=== PATIENT | female | born 1970 | race Caucasian/White ===

== ENCOUNTER 2023-03-24 08:00 | Day surgery (SDC) | payer OTHER ==
[~2023-03-24 08:00] MED LIST: ACET500; ALBU90I; ALBU90OI6 INH; ALBU90OI61 INH; AZIT250 PO; BUPR100ER PO; CIPR500 PO; CIPRO; CITA20 PO; CYCL10 PO; DIPH50 PO; EAR DROPS; HYDACE5 PO; HYDCHL25 PO; IBUP800; NAPR550 PO; OXYACE5T PO; PRED20 PO; PROCODE120 PO; RXNAPNA550 PO; RXNEOPOLHC AU
== END 2023-03-24 22:55 | disposition home or self-care (01) ==
LOC: WOUND 08:00
DX: L03.115 Cellulitis of right lower limb (principal); I87.2 Venous insufficiency (chronic) (peripheral); L97.812 Non-pressure chronic ulcer of other part of right lower leg with fat layer exposed; Z88.2 Allergy status to sulfonamides; Z88.0 Allergy status to penicillin
CPT/HCPCS: A9270; G0463

== ENCOUNTER 2023-03-30 03:19 | Day surgery (SDC) | payer OTHER | END 2023-03-30 22:53 | disposition home or self-care (01) | LOC: WOUND 03:19 | DX: L03.115 Cellulitis of right lower limb (principal); L97.812 Non-pressure chronic ulcer of other part of right lower leg with fat layer exposed; I87.2 Venous insufficiency (chronic) (peripheral) | CPT/HCPCS: A9270; G0463 ==

== ENCOUNTER 2023-04-08 03:15 | Day surgery (SDC) | payer OTHER | END 2023-04-08 23:57 | disposition home or self-care (01) | LOC: WOUND 03:15 | DX: L03.115 Cellulitis of right lower limb (principal); I87.2 Venous insufficiency (chronic) (peripheral); L97.812 Non-pressure chronic ulcer of other part of right lower leg with fat layer exposed | CPT/HCPCS: A9270 ==

== ENCOUNTER 2023-04-14 01:08 | Day surgery (SDC) | payer OTHER | END 2023-04-14 22:48 | disposition home or self-care (01) | LOC: WOUND 01:08 | DX: L03.115 Cellulitis of right lower limb (principal); I87.2 Venous insufficiency (chronic) (peripheral); L97.812 Non-pressure chronic ulcer of other part of right lower leg with fat layer exposed | CPT/HCPCS: G0463 ==

== ENCOUNTER 2023-04-20 07:44 | Day surgery (SDC) | payer OTHER | END 2023-04-20 22:44 | disposition home or self-care (01) | LOC: WOUND 07:44 | DX: L03.115 Cellulitis of right lower limb (principal); L97.812 Non-pressure chronic ulcer of other part of right lower leg with fat layer exposed; I87.2 Venous insufficiency (chronic) (peripheral) | CPT/HCPCS: A9270 ==

== ENCOUNTER 2023-04-22 02:57 | Day surgery (SDC) | payer OTHER | END 2023-04-22 22:59 | disposition home or self-care (01) | LOC: WOUND 02:57 | DX: L03.115 Cellulitis of right lower limb (principal); L97.812 Non-pressure chronic ulcer of other part of right lower leg with fat layer exposed; I87.2 Venous insufficiency (chronic) (peripheral) | CPT/HCPCS: G0463 ==

== ENCOUNTER 2023-04-29 02:40 | Day surgery (SDC) | payer OTHER | END 2023-04-29 22:49 | disposition home or self-care (01) | LOC: WOUND 02:40 | DX: L03.115 Cellulitis of right lower limb (principal); L97.812 Non-pressure chronic ulcer of other part of right lower leg with fat layer exposed; I87.2 Venous insufficiency (chronic) (peripheral) | CPT/HCPCS: A9270; G0463 ==

== ENCOUNTER 2023-05-06 01:18 | Day surgery (SDC) | payer OTHER | END 2023-05-06 22:50 | disposition home or self-care (01) | LOC: WOUND 01:18 | DX: L03.115 Cellulitis of right lower limb (principal); L97.812 Non-pressure chronic ulcer of other part of right lower leg with fat layer exposed; I87.2 Venous insufficiency (chronic) (peripheral) | CPT/HCPCS: A9270 ==

== ENCOUNTER 2023-05-13 03:36 | Day surgery (SDC) | payer OTHER | END 2023-05-13 23:42 | disposition home or self-care (01) | LOC: WOUND 03:36 | DX: L03.115 Cellulitis of right lower limb (principal); I87.2 Venous insufficiency (chronic) (peripheral); L97.812 Non-pressure chronic ulcer of other part of right lower leg with fat layer exposed | CPT/HCPCS: A9270 ==

== ENCOUNTER 2023-05-27 00:45 | Day surgery (SDC) | payer OTHER ==
[2023-05-27] MEDS ORDERED: Triamcinolone Acet 0.1% Cream 15 gm ONE (09:07)
== END 2023-05-27 23:06 | disposition home or self-care (01) ==
LOC: WOUND 00:45
DX: L03.115 Cellulitis of right lower limb (principal); I87.2 Venous insufficiency (chronic) (peripheral); L97.812 Non-pressure chronic ulcer of other part of right lower leg with fat layer exposed
CPT/HCPCS: A9270

== ENCOUNTER 2023-06-03 01:31 | Day surgery (SDC) | payer OTHER ==
[2023-06-03] MEDS ORDERED: Triamcinolone Acet 0.1% Cream 15 gm ONE (09:04)
== END 2023-06-03 23:02 | disposition home or self-care (01) ==
LOC: WOUND 01:31
DX: L03.115 Cellulitis of right lower limb (principal); I87.2 Venous insufficiency (chronic) (peripheral); L97.812 Non-pressure chronic ulcer of other part of right lower leg with fat layer exposed
CPT/HCPCS: A9270

== ENCOUNTER 2023-06-10 05:14 | Day surgery (SDC) | payer OTHER ==
[2023-06-10] MEDS ORDERED: Triamcinolone Acet 0.1% Cream 15 gm ONE (08:47)
== END 2023-06-10 23:01 | disposition home or self-care (01) ==
LOC: WOUND 05:14
DX: I87.2 Venous insufficiency (chronic) (peripheral) (principal); L97.812 Non-pressure chronic ulcer of other part of right lower leg with fat layer exposed; L03.115 Cellulitis of right lower limb
CPT/HCPCS: A9270